=== PATIENT | male | born 1975 | race Caucasian/White ===

== ENCOUNTER → 2022-01-22 14:52 | Outpatient (BNVA) | payer OTHER, SELFPAY | PROVIDERS: Visit Provider Internal Medicine | DX: Z02.1 Encounter for pre-employment examination (principal) ==

== ENCOUNTER 2022-01-22 15:08 | Emergency (ER) | payer OTHER, SELFPAY ==
--- NOTE | ~2022-01-22 | XR_ITS ---
EXAMINATION: XR FINGER, RIGHT CLINICAL INFORMATION: Laceration lateral border of the thumb. COMPARISON: None TECHNIQUE: 3 views of the right thumb. FINDINGS: There is a soft tissue laceration in the lateral from overlying the region of the proximal one third of the proximal phalanx. A tiny 1.5 mm x 0.2 mm radiopaque foreign body is noted dorsolaterally. An additional tiny even smaller punctate density is seen just deep to this. No osseous abnormality is seen. XR/XR finger RT min 2V IMPRESSION: Disruption of soft tissue with question of foreign bodies as described above. No bony abnormality
[2022-01-22 15:35] VITALS: BP 139/81; PULSE 98; RESP 18; TEMP 37.3; O2SAT 96; BMI 49.4
[2022-01-22] MEDS: Diphth,Pertus(ACell),Tet Adult 0.5 ML SYRINGE IM (16:06)
[2022-01-22] MEDS: Lidocaine HCl 2 % MPF 5 ML VIAL INFILTRATI ×2 (16:09→17:06)
--- NOTE | 2022-01-22 16:34 | ED_ITS ---
HPI - Wound/Laceration General Chief Complaint: Wound/Laceration Stated Complaint: right hand laceration Time Seen by Provider: 01/22/22 15:56 Source: patient Mode of arrival: ambulatory Limitations: no limitations History of Present Illness HPI narrative: 46-year-old left-hand dominant male presents to the ER with deep laceration to the dorsal aspect of his right thumb. He states he was at work when a thick pie ce of metal fell and sliced the back of his right thumb. He reports severe pain and significant bleeding at the time of the injury. He is able to fully bend and extend thumb and reports some numbness of entire thumb. He states the pain is significantly improved since arriving to the emergency department. He initially went to work connection for evaluation but this and the emergency room for further evaluation given the bleeding and depth of the injury. He is not aware when he had his last tetanus shot. Onset (ago): hour(s) Extremity Location: right: hand (Dorsal thumb) Place: work Patient tetanus UTD: No Context: accidental Associated symptoms: pain Treatments prior to arrival: bandage Related Data Previous Rx's Medication Instructions Recorded cephalexin 500 mg capsule 500 mg PO Q6H 7 Days #28 cap 01/22/22 Allergies Allergy/AdvReac Type Severity Reaction Status Date / Time No Known Allergies Allergy Verified 01/22/22 16:12 Review of Systems Review of Systems: Constitutional: No Fever, No Chills Cardiovascular: No Chest Pain, No SOB Gastrointestinal: No Nausea, No Vomiting Musculoskeletal: + joint pain, No Myalgias Skin: + Skin Lesions, No rash Neuro: No Weakness, +Numbness, No Dizziness, No Headache Psych: No Anxiety/Panic Heme/Lymph: No Bruising, No Lymphadenopathy PMFSH Past Medical History Medical History (Updated 01/22/22 @ 17:43 by ARASELI Kebede) High cholesterol HTN (hypertension) Social History Social History Advance Directives: No Advance Directives Information Provided: No Physical Exam Vital Signs: Vital Signs: Last Vital Signs Temp 99.1 F 01/22/22 15:35 Pulse 98 01/22/22 15:35 Resp 18 01/22/22 15:35 BP 139/81 01/22/22 15:35 Pulse Ox 96 01/22/22 15:35 BMI result Body Mass Index 49.4 Appearance: Alert. Oriented X3. No acute distress. HEENT: normal inspection CVS: Normal heart rate and rhythm. Pulses normal. Respiratory: No respiratory distress. Skin: Skin warm and dry. Normal skin color. Normal skin turgor. No rashes. Extremities: Dorsal aspect of the right thumb with a deep 8 cm irregular laceration with active bleeding, deep structures intact with normal flexion and extension of the thumb joints. Wound is contaminated with an irregular flap distally. No visible tendon. Neuro: Oriented X 3. No motor deficit. No sensory deficit. Course Course Course Narrative: 46-year-old male presents to the ER for evaluation of a right thumb laceration, approximately 8 cm deep and irregular. Wound was thoroughly irrigated and explored. Wound was successfully closed using 25 4-0 sutures after anesthetized with a digital block. Patient given Tdap. X-ray pending. Reevaluation(s) Reevaluation #1: X-ray showing 2 very tiny possible foreign bodies, 1.5mm & 0.2mm. He will be placed on empiric Keflex help prevent infection. Encourage follow-up with Dr. Luu for further evaluation. Stable for DC home. Wound care discussed with patient and his . Stable for DC. Procedures Laceration Laceration 1: Site: hand Side (If applicable): right Size (cm): 8 Description: flap, irregular and contaminated Depth: involves muscle layer Local Anesthetic: lidocaine 2% Amount of anesthesia used (mL): 10 Pre-repair: wound explored, irrigated extensively and deep structures intact Skin layer closed with: nylon Size (cm): 4-0 Number of sutures: 25 Technique: simple, interrupted Nerve Block Nerve Block 1: Time out performed: Yes Local Anesthetic: lidocaine 2% Amount of anesthesia used (mL): 8 Side: right Nerve Blocks: digital Procedure Successful: Yes Patient Tolerated Procedure: well and no complications Complications: none Critical Care Time Critical Care Time Critical Care Time: No Discharge Plan Discharge Clinical Impression: Hand laceration Patient Disposition: Home, Self-Care Additional Instructions: You will need your stitches out in 10-14 days. See you doctor for this or come back to the ER and we will remove them. Do not get wet for 24 hours, after that you can briefly wash with soap and water then pat dry. Use bacitracin 2x per day. Take the prescribed antibiotic to help prevent infecction. Keep wound clean and covered. Do not submerge in water, no swimming, no dishes. If you develop signs of infection including increased pain, swelling, redness or drainage of pus come back to the ER for further evaluation. Recommend following up with our Hand Specialist - name and number below Prescriptions: New cephalexin 500 mg capsule 500 mg PO Q6H 7 Days Qty: 28 0RF Referrals: Myrna Luu MD [Physician] - 1 week (Deep right thumb laceration) Stand Alone Forms: Work/School Release
== END 2022-01-22 19:10 | disposition home or self-care (01) ==
PROVIDERS: Emergency Provider Emergency Medicine; PCP Internal Medicine
DX: S61.411A Laceration without foreign body of right hand, initial encounter (principal); S60.511A Abrasion of right hand, initial encounter; W26.9XXA Contact with unspecified sharp object(s), initial encounter; Y93.9 Activity, unspecified; Y92.9 Unspecified place or not applicable; Y99.0 Civilian activity done for income or pay
CPT/HCPCS: 12044; 73140; 90471; 90715; 99284

== ENCOUNTER → 2022-02-01 08:58 | Outpatient (BNVA) | payer OTHER, SELFPAY | PROVIDERS: PCP Internal Medicine; Visit Provider Physician Assistant | DX: S61.011A Laceration without foreign body of right thumb without damage to nail, initial encounter (principal); W26.9XXA Contact with unspecified sharp object(s), initial encounter | CPT/HCPCS: 99204; 99212 ==

== ENCOUNTER 2022-02-04 07:07 | Outpatient (REF) | payer OTHER, SELFPAY ==
--- NOTE | ~2022-02-04 | XR_ITS ---
EXAMINATION: XR HAND, RIGHT CLINICAL INFORMATION: M79.643 - Pain. Recent laceration lateral border thumb. COMPARISON: Radiographs right thumb 01/22/2022 TECHNIQUE: PA, lateral, and oblique views of the right hand. FINDINGS: There are no acute or healing fracture, dislocation, destructive process. No periostitis. No interval joint narrowing or erosive change. Some fine soft tissue foreign bodies noted lateral side from at level of proximal phalanx are again noted. No gas tracking in soft tissue plane. XR/XR hand RT min 3V IMPRESSION: -Punctate soft tissue foreign bodies lateral side thumb, similar to prior exam 01/22/2022. -No acute or healing fracture or destructive process.
== END 2022-02-04 07:08 | disposition home or self-care (01) ==
LOC: HO.HOSX 07:07
PROVIDERS: Visit Provider Physician Assistant
DX: M79.641 Pain in right hand (principal); S61.411A Laceration without foreign body of right hand, initial encounter; W20.8XXA Other cause of strike by thrown, projected or falling object, initial encounter; Y93.89 Activity, other specified; Y92.89 Other specified places as the place of occurrence of the external cause; Y99.9 Unspecified external cause status; I10 Essential (primary) hypertension; E78.00 Pure hypercholesterolemia, unspecified
CPT/HCPCS: 73130; 99202

== ENCOUNTER → 2022-02-12 11:08 | Outpatient (BNVA) | payer OTHER, SELFPAY | PROVIDERS: Visit Provider Physician Assistant | DX: S61.011D Laceration without foreign body of right thumb without damage to nail, subsequent encounter (principal) | CPT/HCPCS: 99212 ==

== ENCOUNTER 2022-03-11 09:00 | Outpatient (RCR) | payer OTHER, SELFPAY | END 2022-05-02 16:29 | disposition home or self-care (01) | LOC: HO.OT 09:00 | PROVIDERS: Visit Provider Physician Assistant | DX: S61.011D Laceration without foreign body of right thumb without damage to nail, subsequent encounter (principal) | CPT/HCPCS: 97035; 97110; 97165 ==

== ENCOUNTER → 2022-03-12 13:20 | Outpatient (BNVA) | payer OTHER, SELFPAY | PROVIDERS: Visit Provider Orthopaedic Surgery | DX: S61.011D Laceration without foreign body of right thumb without damage to nail, subsequent encounter (principal) | CPT/HCPCS: 99212 ==